=== PATIENT | female | born 2005 | race Hispanic/Latino ===

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

== ENCOUNTER 2024-02-01 12:49 | Emergency (ER) | payer BC, SELFPAY | END 2024-02-01 13:45 | disposition home or self-care (01) | LOC: ERS 12:49 | DX: S93.402A Sprain of unspecified ligament of left ankle, initial encounter (principal); X50.1XXA Overexertion from prolonged static or awkward postures, initial encounter | CPT/HCPCS: 99283 ==

== ENCOUNTER 2024-02-27 17:18 | Emergency (ER) | payer BC, OTHER ==
[2024-02-27] MEDS ORDERED: Lidocaine 1% PF 5 ML VIAL ONE (19:18)
== END 2024-02-27 19:49 | disposition home or self-care (01) ==
LOC: ERS 17:18
DX: S61.212A Laceration without foreign body of right middle finger without damage to nail, initial encounter (principal); W27.2XXA Contact with scissors, initial encounter; Y93.89 Activity, other specified; Y92.69 Other specified industrial and construction area as the place of occurrence of the external cause
CPT/HCPCS: 12001; 99283